=== PATIENT | male | born 1965 | race Caucasian/White ===

== ENCOUNTER 2017-09-13 09:57 | Day surgery (SDC) | payer MEDICAID ==
[2017-09-12 15:33] VITALS: BMI 27.9
[2017-09-13 10:28] LABS: BASO # 0.01 K/mm3 (0.0-2.0); BASO % 0.2 % (0.0-3.0); EOS # 0.2 (0.0-0.7); EOS % 3.4 % (1.5-5.0); GRAN # 2.48 (1.4-6.5); GRAN % 44.8 % (50.0-68.0); HEMOGLOBIN 14.2 g/dL (14.0-18.0); LYMPH # 2.3 (1.2-3.4); LYMPH % 42.2 % (22.0-35.0); MEAN CELL VOLUME 88.7 fl (80.0-105.0); MEAN CORPUSCULAR HEMOGLOBIN 28.7 pg (25.0-35.0); MEAN CORPUSCULAR HGB CONC 32.3 g/dl (31.0-37.0); MEAN PLATELET VOLUME 11.6 fl (7.0-11.0); MONO # 0.5 (0.1-0.6); MONO % 9.4 % (1.0-6.0); RBC 4.95 10^6/uL (3.5-6.1); RED CELL DISTRIBUTION WIDTH 13.5 % (11.5-14.5); WHITE BLOOD COUNT 5.5 10^3/ul (4.5-11.0)
[2017-09-13 10:38] LABS: BLOOD UREA NITROGEN 15 mg/dL (7-21); CALCIUM 9.5 mg/dL (8.4-10.5); GFR AFRICAN-AMERICAN > 60; GFR NON-AFRICAN AMERICAN > 60
[2017-09-13 10:39] LABS: INR 1.04 (0.93-1.08); PARTIAL THROMBOPLASTIN TIME 30.8 Seconds (25.1-36.5)
[2017-09-13] MEDS ORDERED: Midazolam 2 MG/2 ML VIAL ONE (12:19)
[2017-09-13] MEDS ORDERED: Lidocaine 1% Inj (20ml) ONE (12:20)
[2017-09-13] MEDS ORDERED: Sodium Chloride 0.45% 1,000 ML IV SCH (13:00)
[2017-09-13] MEDS ORDERED: Oxycodone/Acetaminophen 5/325 mg Tab PO PRN (13:00)
--- NOTE | 2017-09-13 14:35 | US ---
PROCEDURE: Ultrasound-guided left thyroid fine needle aspiration biopsy. CLINICAL HISTORY: Previous right lobe thyroidectomy. 3 cm hypoechoic nodule in the left thyroid. Evaluate for malignancy. PHYSICIAN(S): Bridger Castillo M.D. TECHNIQUE: The relative risks and indications for the procedure were explained to the patient and consent obtained. The patient was placed supine on the stretcher with the neck extended and preliminary sonography of the thyroid performed. The patient is status post right thyroidectomy. There is a well-circumscribed 3 cm hypoechoic nodule in the left thyroid. The neck was prepped and draped in the usual sterile fashion. Conscious sedation and monitoring were provided throughout the procedure by a nurse. 1% Xylocaine was used to anesthetize the skin and soft tissues at the access site. Three passes with a 22-gauge needle were performed under ultrasound guidance for fine needle aspiration of the 3 cm hypoechoic nodule in the left thyroid. The slides were reviewed by pathology and deemed adequate. The patient tolerated the procedure well. IMPRESSION: 1. Ultrasound guided fine needle aspiration of a 3 cm hypoechoicnodule in the left thyroid.
[2017-09-13 14:38] VITALS: RESP 18; TEMP 97.7
[2017-09-13 15:00] VITALS: BP 151/89; PULSE 60; O2SAT 99
== END 2017-09-13 14:44 | disposition home or self-care (01) ==
LOC: SDS 09:57
PROVIDERS: ATTEND Radiology Vascular & Interventional Radiology
DX: E04.1 Nontoxic single thyroid nodule (principal); J45.909 Unspecified asthma, uncomplicated; E66.9 Obesity, unspecified; Z68.28 Body mass index [BMI] 28.0-28.9, adult; R35.8 Other polyuria; Z80.8 Family history of malignant neoplasm of other organs or systems
CPT/HCPCS: 10022; 36415; 76942; 80048; 85025; 85610; 85730; 88173; 99152; J2250; J2405; J3010; J7030